=== PATIENT | male | born 1950 | race Caucasian/White ===

== ENCOUNTER 2017-10-15 10:22 | Outpatient (CLI) | payer MEDICARE, BC | END 2017-10-15 10:23 | disposition home or self-care (01) | LOC: BICULT 10:22 | PROVIDERS: ATTEND Internal Medicine Nephrology | DX: I12.9 Hypertensive chronic kidney disease with stage 1 through stage 4 chronic kidney disease, or unspecified chronic kidney disease (principal); N18.3 Chronic kidney disease, stage 3 (moderate) | CPT/HCPCS: 76770 ==

== ENCOUNTER 2018-06-17 10:24 | Outpatient (CLI) | payer MEDICARE, BC ==
--- NOTE | 2018-06-17 10:37 | RAD ---
EXAM: Two views chest PROVIDED CLINICAL HISTORY: Cough COMPARISON: 02/11/2012 FINDINGS: Cardiac and mediastinal silhouette appears within normal limits. Patchy airspace disease left midlung zone on the frontal view. No pleural fluid or pneumothorax apparent. IMPRESSION: Patchy left midlung zone airspace disease, compatible with pneumonia in the appropriate clinical cont ext. Follow-up after treatment is recommended to document resolution.
== END 2018-06-17 10:25 | disposition home or self-care (01) ==
LOC: RAD-FRANK 10:24
PROVIDERS: ATTEND Nurse Practitioner Family
DX: R05 Cough (principal); R53.83 Other fatigue; J98.4 Other disorders of lung
CPT/HCPCS: 71046

== ENCOUNTER 2018-06-29 15:53 | Outpatient (CLI) | payer MEDICARE, BC ==
--- NOTE | 2018-06-29 16:04 | RAD ---
Exam: Chest 2 views HISTORY:Cough Comparison: 06/17/2018 FINDINGS: Prior patchy left perihilar opacity has decreased Lungs: No masses or consolidation. Cardiac silhouette:Stable Pulmonary vessels: Normal Pleural Spaces: Clear Pneumothorax: None Osseous abnormalities: None of acuity. IMPRESSION: No focal consolidation. Improvement of prior left patchy perihilar opacity.
== END 2018-06-29 15:54 | disposition home or self-care (01) ==
LOC: RAD-FRANK 15:53
PROVIDERS: ATTEND Nurse Practitioner Family
DX: J18.1 Lobar pneumonia, unspecified organism (principal)
CPT/HCPCS: 71046